=== PATIENT | female | born 1940 | race Caucasian/White ===

== ENCOUNTER 2017-02-01 15:55 | Outpatient (CLI) | payer MEDICARE ==
--- NOTE | 2017-02-02 09:51 | MRI ---
MRI OF THE ABDOMEN WITH AND WITHOUT IV CONTRAST: Date: 02/01/17 INDICATION: History of abdominal bloating, gastritis, and liver lesion found on an outside CT evaluation. Patient also has a history of uterine and breast cancer. FINDINGS: No comparisons are available. 14 mL MultiHance was utilized for the examination. There is a 1.6 cm T2 hyperintense, T1 hypointense lesion that demonstrates peripheral nodular and dis continuous enhancement with progressive central fill-in, most consistent with a hemangioma. There is prominent fatty infiltration of the liver. There is a prominent diverticulum seen within the second stage of the duodenum. There is no overt main pancreatic or biliary ductal dilatation demonst rated. The adrenal glands and kidneys appear within normal limits. There is a tiny cyst involving the lower pole of the right kidney. The spleen is normal appearing. No pathologically enlarged lymph nodes are evident. No definite bone marrow signal abnormality is noted. IMPRESSION: 1. Right hepatic dome hemangioma. 2. Tiny, subcentimeter, inferior pole right renal cyst. 3. Fatty infiltration of the liver. POS: IBETH
== END 2017-02-01 15:56 | disposition home or self-care (01) ==
LOC: MRI 15:55
PROVIDERS: ATTEND Internal Medicine
DX: K29.70 Gastritis, unspecified, without bleeding (principal); R10.13 Epigastric pain; R14.0 Abdominal distension (gaseous); R93.2 Abnormal findings on diagnostic imaging of liver and biliary tract; R91.8 Other nonspecific abnormal finding of lung field; D18.03 Hemangioma of intra-abdominal structures; K76.0 Fatty (change of) liver, not elsewhere classified; N28.1 Cyst of kidney, acquired
CPT/HCPCS: 74183

== ENCOUNTER 2017-02-06 10:52 | Outpatient (CLI) | payer MEDICARE ==
--- NOTE | 2017-02-06 15:27 | PET ---
NUCLEAR MEDICINE FDG PET CT: (Positron Emission Tomography) DATE: 02/06/17 HISTORY: 76-year-old female with solitary pulmonary nodule. COMPARISON: No prior PET scans. Patient had a CT of the chest at [facility] in [place], [place], which is no t available for review. The report mentions a 3.3 cm growing left apical upper lobe pulmonary lesion. TECHNIQUE: IV injection F-18 Fluorodeoxyglucose (FDG) dose: 10.6 mCi PET and attenuation-correction CT performed from skull base to proximal thighs. FINDINGS: SUV (standard uptake value) numbers given are maximum SUV's: The patchy, irregularly shaped, soft tissue attenuation lesion at the apicoposterior segment of the l eft upper lobe, abutting the apical anterior border of the major fissure, is not hypermetabolic (SUV 2.3). There is no focus of abnormal hypermetabolic activity anywhere in the neck, chest, abdomen, or pelvis. IMPRESSION: 1. The left upper lobe lesion is not FDG avid. Possibilities include chronic/indolent inflammatory o r infectious lesion, or low grade neoplasm such as bronchoalveolar cell carcinoma. 2. No evidence of metastatic disease. JN R POS: IBETH
== END 2017-02-06 10:53 | disposition home or self-care (01) ==
LOC: PET 10:52
PROVIDERS: ATTEND Internal Medicine Pulmonary Disease
DX: R91.1 Solitary pulmonary nodule (principal); K76.0 Fatty (change of) liver, not elsewhere classified; K76.89 Other specified diseases of liver; J98.4 Other disorders of lung
CPT/HCPCS: 78815; A9552

== ENCOUNTER 2019-12-04 08:04 | Outpatient (CLI) | payer MEDICARE, OTHER ==
[2019-12-04 18:56] LABS: SARS-CoV-2 MS2 Positive; SARS-CoV-2 N Gene Negative; SARS-CoV-2 S Gene Negative; SARS-CoV-2 by NAA Not Detected (NotDetected); SARS-CoV-2 orf1ab Negative
== END 2019-12-04 08:05 | disposition home or self-care (01) ==
LOC: LABBT 08:04
PROVIDERS: ATTEND Neurological Surgery
DX: M48.061 Spinal stenosis, lumbar region without neurogenic claudication (principal); M54.16 Radiculopathy, lumbar region; Z20.828 Contact with and (suspected) exposure to other viral communicable diseases
CPT/HCPCS: 87635; U0003

== ENCOUNTER 2019-12-08 06:20 | Day surgery (SDC) | payer MEDICARE ==
[2019-12-05 10:54] VITALS: BMI 18.8
--- NOTE | 2019-12-07 23:06 | HP ---
HISTORY OF PRESENT ILLNESS: Ms. Jacob is a very pleasant 79-year-old woman, who is referred to our office by Dr. Reyes for lower back and right lower extremity L5 pain of severe nature. She has had these pains for many years, but recently it became more significant. Dr. Reyes has provided epidural steroid injections for the past few years and while it initially provided relief and recent times, it has been less effective and her pains are affecting her daily life greatly at this time. MRI from [facility] reveals a well-appearing spine at L4-5, where she has a grade 1 slip and severe spinal stenosis, mostly lateral recess at this level. Foramina are patent bilaterally. Examination is deferred secondary to telehealth visit. PAST MEDICAL HISTORY: Significant for chronic pain syndrome, depression, anemia, seasonal allergies, hypertension, and gastric ulcers. PAST SURGICAL HISTORY: Ovarian cancer, breast cancer, and lung cancer surgery for the first two and only radiation treatment for the latter. CURRENT MEDICATIONS: 1. Lisinopril. 2. Metoprolol. 3. Ondansetron. ALLERGIES: NO KNOWN DRUG ALLERGIES. ASSESSMENT: Lumbar radiculopathy. PLAN: Dr. Haywood met with the patient, reviewed imaging, advocated for a right L4-L5 decompression. He explained the patient risks, benefits, and alternatives to the procedure. The patient expressed understanding and elected to move forward with surgery as discussed. I do believe the patient is mentally competent and capable of making medical decisions for herself. We will move forward with surgery as planned. Job ID: [id number]
[2019-12-08] MEDS ORDERED: Levofloxacin 500 mg/D5W 100 ml Premix Bag ONE (07:04)
[2019-12-08] MEDS ORDERED: Clindamycin/D5W 900 mg/50 ml Premix Bag ONE (07:04)
[2019-12-08] MEDS ORDERED: Fentanyl 100 MCG/2 ML VIAL ONE ×4 (08:45→11:33)
[2019-12-08] MEDS ORDERED: Bupivacaine HCl 0.5%/Epinephrine 1:200,000/PF 30 ml Vial ONE (09:41)
--- NOTE | 2019-12-08 10:47 | OP ---
DATE OF PROCEDURE: 12/08/2019 [employer]: Sukhdeep Horn PA-C INDICATION: Pain. DIAGNOSIS: Right L5 radiculopathy. PROCEDURE PERFORMED: Right L4-L5 decompression. ANESTHESIA: General. DESCRIPTION OF PROCEDURE: The patient was brought into the operating room and placed under general anesthesia. She was flipped from the supine to prone position on the operating room table. A linear incision was planned over the L4-L5 segment. After prepping and draping and after an appropriate preoperative pause, the incision was created. The soft tissues were swept right of midline. A self-retaining retractor was placed for optimal exposure and the C-arm images were obtained to confirm the appropriate level. A high-speed cutting drill bit as well as 2, 3, and 4 mm Kerrisons were used to perform a laminectomy along the inferior aspect of L4 and the superior aspect of L5. The medial half of the facet joint was removed as it was loose to begin with. After performing the bone work, yellow ligament was removed at the L4-L5 lateral recess, where the descending L5 nerve root could be well visualized along its descending path in the early portions of its exit through the L5 foramen. The wound was then irrigated. Hemostasis was maintained throughout. The wound was then closed in anatomic layers, and a pressure dressing was applied. There were no known procedural complications. Job ID: [id number]
[2019-12-08] MEDS ORDERED: Lidocaine 1% PF 5 ML VIAL ONE (11:05)
[2019-12-08] MEDS ORDERED: Ondansetron PF 4 MG/2 ML Vial ONE (11:05)
[2019-12-08] MEDS ORDERED: PROPOFOL 200 MG/20 ML VIAL ONE (11:05)
[2019-12-08] MEDS ORDERED: Ketorolac Tromethamine 30 MG/ML VIAL ONE (11:05)
[2019-12-08] MEDS ORDERED: Rocuronium Bromide 10 MG/ML (10ML VIAL) ONE (11:05)
[2019-12-08] MEDS ORDERED: Glycopyrrolate 0.2 MG/ML 5 ML SYRINGE ONE (11:05)
[2019-12-08] MEDS ORDERED: Morphine 4 MG/ML VIAL ONE (11:55)
[2019-12-08] MEDS ORDERED: Acetaminophen/Codeine 30-300mg Tablet ONE (14:05)
--- NOTE | 2019-12-09 14:49 | EKG ---
Test Reason : PREOP Blood Pressure : / mmHG Vent. Rate : 072 BPM Atrial Rate : 072 BPM P-R Int : 174 ms QRS Dur : 082 ms QT Int : 408 ms P-R-T Axes : 073 083 073 degrees QTc Int : 446 ms Normal sinus rhythm Right atrial enlargement RSR' or QR pattern in V1 suggests right ventricular conduction delay Borderline ECG When compared with ECG of 08-DEC-2019 07:07, (Unconfirmed) Premature ventricular complexes are no longer Present Confirmed by DONG ZABALA (2) on 12/09/2019 2:49:35 PM Referred By: MENDEZ Confirmed By:DONG ZABALA
--- NOTE | 2019-12-09 14:49 | EKG ---
Test Reason : PREOP Blood Pressure : / mmHG Vent. Rate : 086 BPM Atrial Rate : 072 BPM P-R Int : 170 ms QRS Dur : 088 ms QT Int : 416 ms P-R-T Axes : 072 080 072 degrees QTc Int : 497 ms Sinus rhythm with frequent , and consecutive Premature ventricular complexes Right atrial enlargement RSR' or QR pattern in V1 suggests right ventricular conduction delay Prolonged QT Abnormal ECG When compared with ECG of 04-OCT-2019 11:24, Fusion complexes are no longer Present T wave inversion no longer evident in Anterior leads Confirmed by DONG ZABALA (2) on 12/09/2019 2:49:17 PM Referred By: MENDEZ Confirmed By:DONG ZABALA
== END 2019-12-08 14:30 | disposition home or self-care (01) ==
LOC: SDC 06:20
PROVIDERS: ATTEND Neurological Surgery
PROC: 00NY0ZZ Release Lumbar Spinal Cord, Open Approach (ICD-10-PCS; principal; 2019-12-08)
DX: M48.061 Spinal stenosis, lumbar region without neurogenic claudication (principal); M54.16 Radiculopathy, lumbar region; G89.4 Chronic pain syndrome; F32.9 Major depressive disorder, single episode, unspecified; I10 Essential (primary) hypertension; D64.9 Anemia, unspecified; Z79.899 Other long term (current) drug therapy; Z88.0 Allergy status to penicillin; Z88.2 Allergy status to sulfonamides
CPT/HCPCS: 76000; 93005; 93010; J1956; J2270; J3010; J3490

== ENCOUNTER 2022-09-13 06:49 | Day surgery (SDC) | payer MEDICARE ==
[2022-09-08 12:59] VITALS: BMI 20.7
[2022-09-13] MEDS ORDERED: Clindamycin/D5W 600 mg/50 ml Premix Bag ONE (07:25)
[2022-09-13] MEDS ORDERED: LevoFLOXacin 500 mg/D5W 100 ML BAG ONE (07:26)
[2022-09-13] MEDS ORDERED: Bupivacaine HCl 0.5%/Epinephrine 1:200,000/PF 30 ml Vial ONE (08:36)
[2022-09-13] MEDS ORDERED: Thrombin 5000 UNITS/5 ML VIAL ONE (08:36)
[2022-09-13] MEDS ORDERED: fentaNYL PF 100 MCG/2 ML SYRINGE ONE (08:42)
[2022-09-13] MEDS ORDERED: Ondansetron PF 4 MG/2 ML Vial ONE (09:08)
[2022-09-13] MEDS ORDERED: NEOSTIGMINE 3 MG/3 ML SYR 3 MG/3 ML SYRINGE ONE (09:08)
[2022-09-13] MEDS ORDERED: Lidocaine 1% PF 5 ML VIAL ONE (09:08)
[2022-09-13] MEDS ORDERED: Dexamethasone 20 MG/5 ML VIAL ONE (09:08)
[2022-09-13] MEDS ORDERED: PROPOFOL 200 MG/20 ML VIAL ONE (09:08)
[2022-09-13] MEDS ORDERED: Glycopyrrolate 0.2 MG/ML 5 ML SYRINGE ONE ×2 (09:08)
[2022-09-13] MEDS ORDERED: Rocuronium Bromide 10 MG/ML (10ML VIAL) ONE (09:08)
[2022-09-13] MEDS ORDERED: PHENYLEPHRINE-NS 100 MCG/ML 10 ML SYRINGE ONE (09:08)
[2022-09-13] MEDS ORDERED: fentaNYL 50 mcg/mL 1 mL Vial ONE ×4 (12:07→13:21)
[2022-09-13] MEDS ORDERED: Promethazine HCl 25 MG/ML VIAL ONE (13:41)
[2022-09-13] MEDS ORDERED: HYDROcodone/Acetaminophen 5/325 mg Tablet ONE (13:46)
== END 2022-09-13 15:55 | disposition home or self-care (01) ==
LOC: SDC 06:49
PROVIDERS: ATTEND Neurological Surgery
PROC: 01NB0ZZ Release Lumbar Nerve, Open Approach (ICD-10-PCS; principal; 2022-09-13)
DX: M48.061 Spinal stenosis, lumbar region without neurogenic claudication (principal); M43.16 Spondylolisthesis, lumbar region; M54.12 Radiculopathy, cervical region; M19.90 Unspecified osteoarthritis, unspecified site; F32.A Depression, unspecified; G89.4 Chronic pain syndrome; I10 Essential (primary) hypertension; Z87.19 Personal history of other diseases of the digestive system; Z79.899 Other long term (current) drug therapy
CPT/HCPCS: 20930; 20936; 22612; 22840; 63042; C1713 ×4; C1889 ×2; J3010; J1100; J1956; J2405; J2550; J2704; J3490